=== PATIENT | male | born 1930 | race Caucasian/White ===

== ENCOUNTER 2016-11-26 01:35 | Inpatient (IN) | payer MEDICARE, OTHER ==
[~2016-11-26 01:35] MED LIST: ADULT ASPIRIN81 MG PO; AMLACTIN TP; ANTIBIOTIC; ASPIR 8181 MG PO; ASTEPRO205.5 MCG/ NS; BACTRIM DS TAB1 EAC2 PO; BACTRIM DS1 TA1 PO; BENADRYL25 MG PO; BETAMETHASONE V15 G3 TOP; COLACE100 MG PO; CORTISPORIN EAR10 M RIGHT EAR; DOXYCYCLINE HY100 M5 PO; FISH OIL 1,2001 CAP PO; FISH OIL 1,2001 EAC5 PO; FISH OIL 1,2001 EACH PO; FLOMAX0.4 MG PO; FLONASE ALLERG9.9 ML NS; FLUOCINONIDE; FLUOCINONIDE 0.60 GM TP; KEFLEX500 M4 PO; KENALOG80 GM TP; LASIX20 MG PO; LEVAQUIN500 MG PO; LEVAQUIN750 MG PO; LOPRESSOR PO; LOPRESSOR50 M1 PO; LOPRESSOR50 MG PO; METOPROLOL SUCC50 MG PO; METOPROLOL TART50 MG PO; MIRALAX17 GM PO; NIASPAN1000 MG PO; NORCO 5/325 TAB1 TAB PO; OXYCODONE/APAP PO; PREDNISONE10 MG PO; PREDNISONE20 MG PO; PROSCAR5 MG PO; PROTOPIC TOP; SULFAMETHOXAZO1 EAC5 PO; TEMOVATE EMOLLI60 GM TP; TOPROL XL50 MG PO; VIBRAMYCIN100 MG PO; WELCHOL3.75 GM PO; WELCHOL625 M1 PO; ZETIA10 MG PO; [UNRECOGNIZED DRUG - OTHER] PO; [UNRECOGNIZED DRUG - OTHER] PO; [UNRECOGNIZED DRUG - OTHER] TP
[2016-11-26 02:34] LABS: BASO % 0.3 % (0-2); EOS % 8.4 % (0-7); EOSINOPHIL ABSOLUTE COUNT 0.6 tho/cmm (0.0-0.7); HCT-HEMATOCRIT 43.9 % (36.0-53.5); HGB-HEMOGLOBIN 14.8 gm/dl (13.5-17.0); IMMATURE GRANULOCYTES ABSOLUTE 0.02 tho/cmm (0-0.03); IMMATURE GRANULOCYTES PERCENT 0.3 % (0-0.3); LYMPH % 19.6 % (20-45); LYMPH ABSOLUTE COUNT 1.5 tho/cmm (0.8-4.5); MCH (MEAN CORPUSCULAR HGB) 31.4 pg (28.0-32.0); MCHC MEAN CORPUSCULAR HGB CONC 33.7 % (32.0-36.0); MEAN PLATELET VOLUME 9.6 cmc (9.4-12.4); MONO % 6.8 % (0-12); MONOCYTE ABSOLUTE COUNT 0.5 tho/cmm (0.0-1.2); NEUTROPHIL ABSOLUTE COUNT 4.9 tho/cmm (1.6-8.0); NEUTROPHIL-AUTOMATED 4.9 tho/cmm (1.6-8.0); NEUTROPHILS % 64.6 % (40-80); PLATELET COUNT 242 tho/cmm (150-450); RED BLOOD COUNT 4.72 mil/cmm (4.40-5.70); RED CELL DISTRIBUTION WIDTH 12.7 % (12.4-16.4); WHITE BLOOD COUNT 7.5 tho/cmm (4.0-10.0)
[2016-11-26 02:49] LABS: ALB/GLOB RATIO 0.9 (0.8-2.0); ALBUMIN 3.3 g/dl (3.5-5.0); ALKALINE PHOSPHATASE 100 U/L (33-138); ALT/SGPT 29 U/L (12-78); ANION GAP 13 mmol/L (0-20); AST/SGOT 25 U/L (10-40); BILIRUBIN,TOTAL 0.4 mg/dl (0.0-1.5); BLOOD UREA NITROGEN 22 mg/dl (6-24); CALCIUM 8.8 mg/dl (8.5-10.5); CARBON DIOXIDE-VENOUS 26 mmol/L (22-32); CHLORIDE 108 mmol/l (96-110); CREATININE 1.07 mg/dl (0.60-1.30); GLUCOSE 106 mg/dL (70-110); SODIUM 143 mmol/L (135-145); eGFR VALUE FOR BLACK 73 mL/Min
[2016-11-26 04:32] LABS: PROCALCITONIN <0.05 ng/ml (0.05-0.09)
[2016-11-27 05:41] LABS: BASO % 0.1 % (0-2); EOS % 5.7 % (0-7); EOSINOPHIL ABSOLUTE COUNT 0.4 tho/cmm (0.0-0.7); HCT-HEMATOCRIT 44.2 % (36.0-53.5); HGB-HEMOGLOBIN 14.8 gm/dl (13.5-17.0); IMMATURE GRANULOCYTES ABSOLUTE 0.01 tho/cmm (0-0.03); IMMATURE GRANULOCYTES PERCENT 0.1 % (0-0.3); LYMPH % 20.3 % (20-45); LYMPH ABSOLUTE COUNT 1.6 tho/cmm (0.8-4.5); MCHC MEAN CORPUSCULAR HGB CONC 33.5 % (32.0-36.0); MCV (MEAN CELL VOLUME) 92.7 fl (82.0-96.0); MEAN PLATELET VOLUME 9.8 cmc (9.4-12.4); MONO % 5.5 % (0-12); MONOCYTE ABSOLUTE COUNT 0.4 tho/cmm (0.0-1.2); NEUTROPHIL ABSOLUTE COUNT 5.3 tho/cmm (1.6-8.0); NEUTROPHIL-AUTOMATED 5.3 tho/cmm (1.6-8.0); NEUTROPHILS % 68.3 % (40-80); PLATELET COUNT 204 tho/cmm (150-450); RED BLOOD COUNT 4.77 mil/cmm (4.40-5.70); RED CELL DISTRIBUTION WIDTH 12.6 % (12.4-16.4); WHITE BLOOD COUNT 7.8 tho/cmm (4.0-10.0)
[2016-11-27 06:20] LABS: C-REACTIVE PROTEIN 2.7 mg/dl (0-0.9)
[2016-11-27 06:27] LABS: PROCALCITONIN 0.06 ng/ml (0.05-0.09)
[2016-11-29] MEDS ORDERED: CLINDAMYCIN HC300 M2 PO (11:55)
[2016-11-29] MEDS ORDERED: BETAMETHASONE D TOP (11:55)
== END 2016-11-29 14:30 | DRG 603 ==
LOC: EDMED 01:35 → EMR2 04:00 → 5WE 05:24
PROVIDERS: Emergency Medicine; Internal Medicine Infectious Disease; ADMIT Internal Medicine
PROC: 05HA33Z Insertion of Infusion Device into Left Brachial Vein, Percutaneous Approach (ICD-10-PCS; principal; 2016-11-26)
DX: L03.116 Cellulitis of left lower limb (principal); B95.62 Methicillin resistant Staphylococcus aureus infection as the cause of diseases classified elsewhere; I87.2 Venous insufficiency (chronic) (peripheral); Z95.1 Presence of aortocoronary bypass graft; I10 Essential (primary) hypertension; I25.10 Atherosclerotic heart disease of native coronary artery without angina pectoris; N40.0 Benign prostatic hyperplasia without lower urinary tract symptoms; I89.0 Lymphedema, not elsewhere classified; E78.5 Hyperlipidemia, unspecified; E66.3 Overweight; Z68.31 Body mass index [BMI] 31.0-31.9, adult; Z86.14 Personal history of Methicillin resistant Staphylococcus aureus infection; Z88.0 Allergy status to penicillin; Z88.8 Allergy status to other drugs, medicaments and biological substances; Z79.82 Long term (current) use of aspirin; Z79.891 Long term (current) use of opiate analgesic; Z79.899 Other long term (current) drug therapy
CPT/HCPCS: C1751; G8978-GP-CH; G8979-GP-CH; G8980-GP-CH; J1650; J3370; J7050